=== PATIENT | male | born 1975 | race Asian ===

== ENCOUNTER 2018-09-03 15:43 | Emergency (ER) | payer BC ==
[~2018-09-03] VITALS: Ht 180.3 cm; Wt 72.6 kg
[2018-09-03 15:43] VITALS: Ht 180.3 cm; Wt 72.6 kg
[2018-09-03 18:00] VITALS: BP 117/85
== END 2018-09-03 18:00 | disposition home or self-care (01) ==
LOC: ED 15:43
DX: S42.002A Fracture of unspecified part of left clavicle, initial encounter for closed fracture (principal); S80.212A Abrasion, left knee, initial encounter; V19.9XXA Pedal cyclist (driver) (passenger) injured in unspecified traffic accident, initial encounter; Y93.I9 Activity, other involving external motion; Y92.413 State road as the place of occurrence of the external cause; Y99.8 Other external cause status
CPT/HCPCS: 90715; Q0092